=== PATIENT | female | born 1985 | race Caucasian/White ===

== ENCOUNTER 2021-11-29 14:46 | Emergency (ER) | payer OTHER, SELFPAY ==
[2021-11-29 15:01] VITALS: BP 123/73; PULSE 68; RESP 16; TEMP 36.3; O2SAT 99
--- NOTE | 2021-11-29 15:21 | ED.URI ---
HPI - URI/Sore Throat General Chief Complaint: Upper Respiratory Infection Stated Complaint: Congestion, eye pain Time Seen by Provider: 11/29/21 15:00 Source: patient, family and RN notes reviewed History of Present Illness HPI Narrative: Patient is a 36-year-old female who presents the urgent care with complaints of nasal congestion, runny nose, postnasal drainage and cough. Patient states that it started last night and she has not taken anything [id number] for her symptoms. Patient denies any fever, nausea or vomiting. Denies of any chest pain or shortness of breath. Denies of any ill contacts. No other acute complaints. No acute distress noted. Patient aware of the plan of care. Some parts of this dictation were generated by voice recognition software and may contain typographical and/or grammatical inaccuracies. Related Data Home Medications Medication Instructions Recorded Confirmed [id number]-[id number] 1 tablet PO Q4-6H PRN 11/29/21 11/29/21 [Excedrin Extra Strength] naproxen [Naprosyn] 250 mg PO BID 11/29/21 11/29/21 Allergies Allergy/AdvReac Type Severity Reaction Status Date / Time tioconazole Allergy Hives Verified 11/29/21 14:59 [From Monistat 1 (tioconazole)] Review of Systems Review of Systems: CONSTITUTIONAL: Denies fever, chills, or sweats. EYES: Denies visual changes, redness, or discharge. ENT: Reports of nasal congestion, rhinorrhea, postnasal drainage CARDIOVASCULAR: Denies chest pain, palpitations, or edema. RESPIRATORY: Reports of cough without dyspnea GASTROINTESTINAL: Denies abdominal pain, nausea, vomiting, or diarrhea. GENITOURINARY: Denies dysuria or hematuria. SKIN: Denies rash or itching. MUSCULOSKELETAL: Denies back pain, joint pain, or myalgia. NEUROLOGIC: Denies headache, numbness, or weakness. All other systems reviewed are negative, except as documented in HPI. PMFSH Comments At the time of my signature, I reviewed and agree with the nursing past medical, surgical, social, and family history. There is no relevant family history pertinent to the patient complaint. Exam Narrative: GENERAL: This is a well-nourished, well-developed patient, in no apparent distress. HEAD: normocephalic, atraumatic. EYES: PERRL. Sclera clear/white. Vision is grossly intact. EARS: External ears normal, auditory canals clear and without drainage, TMs normal without perforation. Hearing grossly intact. NOSE: External nose normal with no obvious nasal discharge, mild bilateral erythemic nares with clear to yellow rhinorrhea THROAT: Mucous membranes moist, posterior pharynx clear. Moderate postnasal drainage NECK: Neck supple CARDIOVASCULAR: Regular rate and rhythm without murmurs, gallops, or rubs. RESPIRATORY: Clear to auscultation. Breath sounds equal bilaterally. No wheezes, rales, or rhonchi. GASTROINTESTINAL: Abdomen soft, non-tender, nondistended. Bowel sounds are active. No hepato-splenomegaly, or palpable masses. No guarding. SKIN: warm, intact with no suspicious lesions or rash, good texture and turgor. NEURO: awake, alert, and oriented to person, place and time. There were no obvious focal neurologic abnormalities. EXTREMITIES: No clubbing, cyanosis, or edema. N Course Course Level of Care: Express Care Visit Vital Signs Vital signs: Vital Signs Temperature 97.4 F L 11/29/21 15:01 Pulse Rate 68 11/29/21 15:01 Respiratory Rate 16 11/29/21 15:01 Blood Pressure 123/73 11/29/21 15:01 Pulse Oximetry 99 11/29/21 15:01 Temperature 97.4 F L 11/29/21 15:01 Pulse Rate 68 11/29/21 15:01 Respiratory Rate 16 11/29/21 15:01 Blood Pressure 123/73 11/29/21 15:01 Pulse Oximetry 99 11/29/21 15:01 Reviewed MDM - URI/Sore Throat MDM Narrative Medical decision making narrative: Reviewed lab results with the patient. She is aware that flu swab was negative as well as rapid COVID. The COVID test is not as accurate if tested with less than 2 to 3
== END 2021-11-29 16:00 | disposition home or self-care (01) ==
PROVIDERS: Emergency Provider Nurse Practitioner Family; PCP Nurse Practitioner Family
DX: J32.9 Chronic sinusitis, unspecified (principal); J30.9 Allergic rhinitis, unspecified; Z20.822 Contact with and (suspected) exposure to COVID-19
CPT/HCPCS: 87426; 87804; 99213; C9803; G0463

== ENCOUNTER 2022-05-09 10:10 | Emergency (ER) | payer OTHER, SELFPAY ==
[2022-05-09 10:16] VITALS: BP 132/87; PULSE 68; RESP 20; TEMP 36.9; O2SAT 100
--- NOTE | 2022-05-09 10:25 | ED.URI ---
HPI - URI/Sore Throat General Chief Complaint: Upper Respiratory Infection Stated Complaint: Fever/Chills Time Seen by Provider: 05/09/22 10:30 Source: patient and RN notes reviewed Mode of arrival: ambulatory Limitations: no limitations History of Present Illness HPI Narrative: 37-year-old female presents concern for 3-day history of fever, chills, nasal congestion, rhinorrhea, cough, ear pain. She reports her fianc? had similar symptoms and had a negative COVID test. She denies shortness of breath. MD elicited complaint: cough and nasal congestion Related Data Home Medications Medication Instructions Recorded Confirmed [id number]-[id number] 250 1 tablet PO Q4-6H PRN Pain 11/29/21 11/29/21 mg-250 mg-65 mg tablet (Excedrin Extra Strength) naproxen 250 mg tablet 250 mg PO BID 11/29/21 11/29/21 Allergies Allergy/AdvReac Type Severity Reaction Status Date / Time tioconazole Allergy Hives Verified 11/29/21 14:59 [From Monistat 1 (tioconazole)] Review of Systems Review of Systems: CONSTITUTIONAL: Reports malaise, chills, sweats, or fever. EYES: Denies visual changes, redness, or discharge. ENT: Reports rhinorrhea, congestion, otalgia and sore throat. CARDIOVASCULAR: Denies chest pain, palpitations, or edema. RESPIRATORY: Reports cough. Denies dyspnea. GASTROINTESTINAL: Denies abdominal pain, nausea, vomiting, diarrhea SKIN: Denies rash or itching. MUSCULOSKELETAL: Denies myalgia. NEUROLOGIC: Denies headache. All systems reviewed & are unremarkable except as noted in HPI and below PMFSH Comments At time of signature, agree with nursing past medical, surgical, social and family history. There is no relevant family history pertinent to the presenting complaint Exam Narrative: GENERAL: Nontoxic appearing and in no acute distress. HEAD: Normocephalic EYES: PERRLA, conjunctivae clear ENT: Nares clear, turbinates edematous and erythematous, clear discharge. Mucous membranes moist. TM pearly daniel with dull light reflex bilaterally; no tragal tenderness. Oropharynx not erythematous without lesions. Tonsils not enlarged and without exudate, no drooling, no hoarseness, no trismus, uvula midline. NECK: Supple. No lymphadenopathy CHEST: Clear to auscultation, breath sounds equal. No wheezing, rhonchi, rales, or stridor. No respiratory distress, speaks in full sentences. HEART: Regular rate and rhythm. No murmur heard. SKIN: Warm, dry, no rash. NEURO: Alert and oriented x3. PSYCH: Normal mood and affect Course Course Emergency Course: Patient is aware of diagnosis, understands and agrees to treatment plan. Anticipatory guidance given. Patient agrees to follow-up as directed and is aware of reasons to seek care at the emergency department. Portions of this record may have been created with voice recognition software Level of Care: Express Care Visit Vital Signs Vital signs: Vital Signs Temperature 98.5 F 05/09/22 10:16 Pulse Rate 68 05/09/22 10:16 Respiratory Rate 20 05/09/22 10:16 Blood Pressure 132/87 05/09/22 10:16 Pulse Oximetry 100 05/09/22 10:16 Oxygen Delivery Room Air 05/09/22 10:16 Temperature 98.5 F 05/09/22 10:16 Pulse Rate 68 05/09/22 10:16 Respiratory Rate 20 05/09/22 10:16 Blood Pressure 132/87 05/09/22 10:16 Pulse Oximetry 100 05/09/22 10:16 Oxygen Delivery Room Air 05/09/22 10:16 Reviewed. MDM - URI/Sore Throat MDM Narrative Medical decision making narrative: Differential diagnosis considered: Baltazar virus, strep pharyngitis, allergic rhinitis, upper respiratory tract infection, sinusitis, rhinosinusitis, nasopharyngitis. viral pharyngitis, otitis media, otitis externa, pneumonia, bronchitis, viral cough syndrome, viral syndrome, and influenza. Exam findings show no acute concerns or changes; patient is non-toxic appearing and is in no distress. Patient is appropriate for outpatient treatment and follow-up. Lab Data Attestation: I
== END 2022-05-09 11:00 | disposition home or self-care (01) ==
PROVIDERS: Emergency Provider Nurse Practitioner
DX: R50.9 Fever, unspecified (principal); U07.1 COVID-19
CPT/HCPCS: 87426; 99213; C9803; G0463

== ENCOUNTER 2023-12-11 18:29 | Emergency (ER) | payer OTHER, SELFPAY ==
[2023-12-11 18:36] VITALS: BP 130/74; PULSE 69; RESP 18; TEMP 36.4; O2SAT 100
[2023-12-11 18:44] VITALS: BP 130/74; PULSE 69; RESP 18; TEMP 36.4; O2SAT 100
--- NOTE | 2023-12-11 19:54 | ED.URI ---
HPI - URI/Sore Throat General Chief Complaint: Upper Respiratory Infection Stated Complaint: Headache/Vomiting/Body Aches Time Seen by Provider: 12/11/23 19:36 Source: patient, RN notes reviewed and old records reviewed Mode of arrival: ambulatory Limitations: no limitations History of Present Illness HPI Narrative: 38-year-old female to Express Care for complaint of right ear pain, head congestion, hoarseness and cough with green sputum for 5 days. Patient denies allergies, fever, GI complaints. Patient able to tolerate fluids by mouth. No acute distress. Respirations even and nonlabored. Related Data Allergies Allergy/AdvReac Type Severity Reaction Status Date / Time tioconazole Allergy Hives Verified 11/29/21 14:59 [From Monistat 1 (tioconazole)] Review of Systems Review of Systems: All systems reviewed & are unremarkable except as noted in HPI and below Constitutional: Constitutional: Reports as per HPI, Denies fever(s) and Denies headache(s) Eyes: Eyes: Reports no additional eye complaints ENT: Reports as per HPI, Reports otalgia ( Right), Reports hoarseness and Reports nasal congestion Cardiovascular: Cardiovascular: Reports no additional cardiovascular complaints, Denies chest pain and Denies dyspnea Respiratory: Respiratory: Reports no additional respiratory complaints, Reports cough ( productive green sputum) and Denies dyspnea Musculoskeletal: Musculoskeletal: Reports no additional musculoskeletal complaints Neurologic: Reports system reviewed and no additional complaints, except as documented Psychiatric: Psychiatric: Reports no additional psychiatric complaints [facility] Surgical History Surgical History History of cholecystectomy (~2007) History of dilation and curettage (10/14/13) pelvic pain/menometrorrhagia/dysmenorrhea History of endometrial ablation (10/14/13) pelvic pain/menometrorrhagia/dysmenorrhea History of laparoscopy pelvic pain/menometrorrhagia/dysmenorrhea History of tubal ligation (~2006) Family History Family History Other Cervical cancer maternal cousin Comments At the time of my signature, I reviewed and agree with the nursing past medical, surgical, social, and family history. There is no relevant family history pertinent to the patient complaint. Exam Const: General: cooperative, no acute distress, alert, ill appearing acutely, tired appearing, uncomfortable and well nourished Nutritional Appearance: well nourished Orientation/consciousness: patient oriented x3 Limitations: no limitations HENMT: Head: normal to inspection Ears: external ears normal and TM abnormal bulging on the right, erythematous on the right and with fluid behind the TM on the right Face/Nose/Sinus: Normal external nose present, Normal nares present, normal facial exam, No erythema and No edema Face and sinus: normal facial exam, no erythema and no edema Mouth: Yes Normal oral and palatal mucosa present Throat: posterior oropharynx abnormal and postnasal drainage Eyes: General: appearance normal, both eyes and all related structures Neck: Neck: normal visual inspection, full ROM and no meningeal signs Lymphatic: no lymphadenopathy noted and no lymphedema noted Chest: Chest palpation & inspection: normal inspection of the chest Resp: Effort & Inspection: normal respiratory effort and able to speak in complete sentences Auscultation: clear to auscultation bilaterally Cardio: Jugular venous distension: no JVD Rate: regular rate Rhythm: regular rhythm Back/Spine/Pelvis: Cervical Spine: cervical ROM normal Skin: General skin exam: normal color, no rashes or lesions noted and turgor normal Neuro: General: patient oriented x3, gait normal, moves all extremities and no meningeal signs Speech: normal speech Gait exam (Neuro): Normal gait present Extrem: Gener
== END 2023-12-11 20:08 | disposition home or self-care (01) ==
PROVIDERS: Emergency Provider Nurse Practitioner Family
DX: H66.91 Otitis media, unspecified, right ear (principal)
CPT/HCPCS: 99213; G0463

== ENCOUNTER 2024-01-23 10:55 | Emergency (ER) | payer OTHER, SELFPAY ==
[2024-01-23 10:59] VITALS: BP 135/77; PULSE 70; RESP 16; TEMP 36.4; O2SAT 100
--- NOTE | 2024-01-23 11:01 | ED.GENADULT ---
HPI - General Adult General Chief complaint: Nausea/Vomiting/Diarrhea Stated complaint: nausea Time Seen by Provider: 01/23/24 11:01 Source: patient, RN notes reviewed and old records reviewed Mode of arrival: ambulatory Limitations: no limitations History of Present Illness HPI narrative: 38-year-old female to Express Care with complaint of nausea, vomiting and diarrhea that began at 6:00 a.m. today. Patient also endorsing upper abdominal discomfort. Patient has not attempted to treat at home. Patient requesting work note. Patient denies fever, chest pain, shortness of breath, pertinent medical history. Patient states she has been able to tolerate small sips water by mouth. Respirations even and nonlabored. Patient in no acute distress. Related Data Allergies Allergy/AdvReac Type Severity Reaction Status Date / Time tioconazole Allergy Hives Verified 01/23/24 11:05 [From Monistat 1 (tioconazole)] Review of Systems Review of Systems: All systems reviewed & are unremarkable except as noted in HPI and below Constitutional: Constitutional: Reports no additional constitutional complaints Eyes: Eyes: Reports no additional eye complaints ENT: Reports system reviewed and no additional complaints, except as documented Cardiovascular: Cardiovascular: Reports no additional cardiovascular complaints, Denies chest pain and Denies dyspnea Respiratory: Respiratory: Reports no additional respiratory complaints, Denies cough and Denies dyspnea Gastrointestinal: Gastrointestinal: Reports diarrhea, Reports nausea and Reports vomiting Musculoskeletal: Musculoskeletal: Reports no additional musculoskeletal complaints Neurologic: Reports system reviewed and no additional complaints, except as documented Psychiatric: Psychiatric: Reports no additional psychiatric complaints PMFSH Surgical History Surgical History History of cholecystectomy (~2007) History of dilation and curettage (10/14/13) pelvic pain/menometrorrhagia/dysmenorrhea History of endometrial ablation (10/14/13) pelvic pain/menometrorrhagia/dysmenorrhea History of laparoscopy pelvic pain/menometrorrhagia/dysmenorrhea History of tubal ligation (~2006) Family History Family History Other Cervical cancer maternal cousin Comments At the time of my signature, I reviewed and agree with the nursing past medical, surgical, social, and family history. There is no relevant family history pertinent to the patient complaint. Exam Const: General: cooperative, no acute distress, alert, tired appearing and well nourished Nutritional Appearance: well nourished Orientation/consciousness: patient oriented x3 Limitations: no limitations HENMT: Head: normal to inspection Ears: external ears normal Face/Nose/Sinus: Normal external nose present, Normal nares present, normal facial exam, No erythema and No edema Face and sinus: normal facial exam, no erythema and no edema Mouth: Yes Normal oral and palatal mucosa present Eyes: General: appearance normal, both eyes and all related structures Neck: Neck: normal visual inspection, full ROM and no meningeal signs Lymphatic: no lymphadenopathy noted and no lymphedema noted Chest: Chest palpation & inspection: normal inspection of the chest Resp: Effort & Inspection: normal respiratory effort and able to speak in complete sentences Auscultation: clear to auscultation bilaterally Cardio: Jugular venous distension: no JVD Rate: regular rate Rhythm: regular rhythm Back/Spine/Pelvis: Cervical Spine: cervical ROM normal Skin: General skin exam: normal color, no rashes or lesions noted and turgor normal Neuro: General: patient oriented x3, gait normal, moves all extremities and no meningeal signs Speech: normal speech Gait exam (Neuro): Normal gait present Extrem: General: full ROM and n
== END 2024-01-23 11:40 | disposition home or self-care (01) ==
PROVIDERS: Emergency Provider Nurse Practitioner Family
DX: K52.9 Noninfective gastroenteritis and colitis, unspecified (principal)
CPT/HCPCS: 99213; G0463

== ENCOUNTER 2024-03-28 12:52 | Emergency (ER) | payer OTHER, SELFPAY ==
[2024-03-28 12:58] VITALS: BP 121/78; PULSE 66; RESP 20; TEMP 36.3; O2SAT 100
--- NOTE | 2024-03-28 14:30 | ED.GENADULT ---
HPI - General Adult General Chief complaint: Upper Respiratory Infection Stated complaint: Vomiting/Nausea/Cough/Ear Pain Source: patient Mode of arrival: ambulatory Limitations: no limitations History of Present Illness HPI narrative: Patient presents for evaluation of sick symptoms. Symptom onset 2 days ago. She reports body aches, nausea and vomiting. No fever, chills, cough, shortness of breath, sore throat, otalgia. Several people with whom she works have flu and COVID. She is not taking any medications to assist with her symptoms. She smokes approximately half pack per day. She states her manager behavioral advised she come in to be checked for COVID and flu. Related Data Allergies Allergy/AdvReac Type Severity Reaction Status Date / Time tioconazole Allergy Hives Verified 01/23/24 11:05 [From Monistat 1 (tioconazole)] Review of Systems Review of Systems: CONSTITUTIONAL: Denies fever, chills, or sweats. EYES: Denies visual changes, redness, or discharge. ENT: Denies rhinorrhea, congestion, sore throat, or otalgia. CARDIOVASCULAR: Denies chest pain, palpitations, or edema. RESPIRATORY: Denies cough or dyspnea. GASTROINTESTINAL: Reports nausea and vomiting. Denies abdominal pain GENITOURINARY: Denies dysuria or hematuria. SKIN: Denies rash or itching. MUSCULOSKELETAL: Reports generalized body aches NEUROLOGIC: Denies headache, numbness, dizziness, or weakness. PSYCHIATRIC: Denies anxiety or depression. [facility] Past Medical History Medical History No pertinent past medical history Surgical History Surgical History History of cholecystectomy (~2007) History of dilation and curettage (10/14/13) pelvic pain/menometrorrhagia/dysmenorrhea History of endometrial ablation (10/14/13) pelvic pain/menometrorrhagia/dysmenorrhea History of laparoscopy pelvic pain/menometrorrhagia/dysmenorrhea History of tubal ligation (~2006) Family History Family History Other Cervical cancer maternal cousin Social History Social History Smoking packs per day: 0.5 Smoking cigarettes per day: 10.0 Tobacco type: cigarettes Living arrangements: with family Gender identity (if verbalized by the patient): Female Spiritual care concerns: No Exam Narrative: GENERAL: Well-appearing, well-nourished, and in no acute distress. HEAD: Normocephalic, atraumatic. EYES: PERRLA and EOMI. ENT: Nares clear, no rhinorrhea or epistaxis. Mucous membranes moist. Oropharynx without tonsillar hypertrophy exudate or other lesions. Bilateral TMs pearly daniel nonbulging NECK: Supple. No adenopathy or masses. No carotid bruits or JVD CHEST: Clear to auscultation. No respiratory distress. No wheezes rales or rhonchi HEART: Regular rate and rhythm. No murmur heard. Normal peripheral pulses. ABDOMEN: Soft, nontender, nondistended, normal active bowel sounds. EXTREMITIES: Normal range of motion. No edema. SKIN: Warm, dry, no rash. NEURO: No focal deficits. Alert and oriented x3. PSYCH: Normal mood and affect. Course Course Emergency Course: This is a 39-year-old female who presented for evaluation of sick symptoms. Flu and COVID were both negative. I offered her a prescription for antiemetics. She declined. Advised on smoking cessation. Increase hydration. Soao-[id number] agents for symptom management. Follow up with primary provider. Go to the ER for worsening symptoms. Patient in agreement with plan of care Level of Care: Express Care Visit Vital Signs Vital signs: Vital Signs Temperature 36.3 C L 03/28/24 12:58 Pulse Rate 66 03/28/24 12:58 Respiratory Rate 20 03/28/24 12:58 Blood Pressure 121/78 03/28/24 12:58 Pulse Oximetry 100 03/28/24 12:58 Oxy
[2024-03-28 14:38] LABS: EDINFLUASCREEN Negative; EDINFLUBSCREEN Negative
== END 2024-03-28 14:36 | disposition home or self-care (01) ==
PROVIDERS: Emergency Provider Nurse Practitioner
DX: B34.9 Viral infection, unspecified (principal); Z20.822 Contact with and (suspected) exposure to COVID-19; F17.210 Nicotine dependence, cigarettes, uncomplicated
CPT/HCPCS: 87426; 87804; 99213; G0463